=== PATIENT | female | born 2000 | race Caucasian/White ===

== ENCOUNTER 2023-11-11 18:58 | Emergency (ER) | payer MEDICAID, SELFPAY ==
[2023-11-11 19:03] VITALS: BP 123/83; PULSE 72; RESP 18; TEMP 36.7; O2SAT 99; BMI 27.4
[2023-11-11] MEDS: tetanus-dipt-pertussis 0.5 mL SDV IM (19:41)
--- NOTE | 2023-11-11 19:45 | ED_ITS ---
HPI - Wound/Laceration General: Chief Complaint: Wound/Laceration Stated Complaint: Left Eye Injury Time Seen by Provider: 11/11/23 19:19 Source: patient Mode of arrival: ambulatory Limitations: no limitations History of Present Illness: Patient is a 23-year-old female present to the emergency department for a laceration to her left eyebrow. States she was hit in the head by a dirty water hose, and her tetanus is not up-to-date. Bleeding controlled on arrival with direct pressure. States that they cleaned it with water. Did not lose consciousness and is only reporting some skin tenderness associated with the laceration. Onset (ago): hour(s) Location: face Place: outdoors Patient tetanus UTD: No Context: accidental Associated symptoms: Reports no associated symptoms; Denies chills, fever(s), nausea or vomiting Treatments prior to arrival: bandage Related Data Previous Rx's Medication Instructions Recorded cephalexin 500 mg capsule 500 mg PO BID 7 days #14 caps 09/01/20 mupirocin 2 % topical ointment 1 applic topical BID #22 grams 09/01/20 Allergies Allergy/AdvReac Type Severity Reaction Status Date / Time doxycycline Allergy Mild itching Verified 11/11/23 19:07 morphine Allergy ALGY-Rash Verified 11/11/23 19:07 Review of Systems 2 General: Reports: 10 or more systems reviewed and unremarkable except in HPI and below Const: Denies: fever(s) or chills Card: Denies: chest pain Resp: Denies: dyspnea GI: Denies: abdominal pain, nausea, vomiting or diarrhea Musc: Denies: extremity pain or joint pain Skin/Breast: Reports: skin tenderness and new lesions; Denies: rash Neuro: Denies: headache(s) PFSH ED PFSH: Medical History No active medical problems Social History Smoking and tobacco/nicotine status: never used tobacco/nicotine Female Reproductive History: Date of last menstrual period: 10/23/23 Physical Exam Const: COMMON NORMALS: no acute distress, average body habitus, patient oriented x3, no limitations, healthy appearing, alert and well nourished Neck/C-Spine: COMMON NORMALS: full ROM, no lymphadenopathy, supple and no meningeal signs Resp: COMMON NORMALS: normal respiratory effort, No use of accessory muscles and clear to auscultation bilaterally AUSCULTATION: clear to auscultation bilaterally Cardio: COMMON NORMALS: regular rate and regular rhythm RATE: regular rate RHYTHM: regular rhythm Extremity: COMMON NORMALS: full ROM and capillary refill normal Neuro: COMMON NORMALS: patient oriented x3 SENSORIUM/ORIENTATION: Yes alert MENINGEAL SIGNS: Yes no meningeal signs Skin: COMMON NORMALS: turgor normal NARRATIVE SKIN EXAM: Very small, very superficial 1 cm laceration to left eyebrow with no active bleeding GENERAL SKIN EXAM: turgor normal Course Vital Signs: Vital signs: Vital Signs Temperature 98.1 F 11/11/23 19:03 Pulse Rate 72 11/11/23 19:03 Respiratory Rate 18 11/11/23 19:03 Blood Pressure 123/83 11/11/23 19:03 Pulse Oximetry 99 11/11/23 19:03 Oxygen Delivery Me thod Room Air 11/11/23 19:03 MDM - Wound/Laceration Medical Decision Making Patient had a laceration caused by hit in the face with a dirty water hose, her tetanus was updated today. Laceration was much too small to repair with suture and shared decision making elected to go with Steri-Strip closure. Wound did appear very clean with no active bleeding on arrival, we did use some chlorhexidine here. She is discharged home with proper wound care instructions and will return with any new or worsening. No radiology studies performed this visit Discharge Plan Discharge Patient Disposition: Home Clinical Impression: Laceration Condition: Stable Prescriptions: No Action cephalexin 500 mg capsule 500 mg PO BID 7 Days Qty: 14 1RF mupirocin 2 % ointment 1 applic topical BID Qty: 22 3RF Discharge Orders: Discharge ED (Routine); Ordered 11/11/23 Ordered By: Arnoldo Patel Referrals: Jessica Zaragoza DO [Primary Care Provider] - Discharge Diet: Usual diet Discharge Activity: Increase activity as tolerated Patient Instructions: Facial Laceration (ED) Activity Restrictions/Additional Instructions: Steri-Strips. Keep wound clean and dry. Tylenol and ibuprofen for relief, may also apply ice. Follow-up with your primary care provider and return with any new or worsening of symptoms. Your tetanus was updated today 11/11/2023. Coding Level of Care Code ED Echo Technologist for Brian Boyd
[2023-11-11 19:46] VITALS: BP 119/81; PULSE 69; RESP 16; O2SAT 100
== END 2023-11-11 19:46 | disposition home or self-care (01) ==
PROVIDERS: Emergency Provider Physician Assistant; PCP Family Medicine
DX: S01.112A Laceration without foreign body of left eyelid and periocular area, initial encounter (principal); W22.8XXA Striking against or struck by other objects, initial encounter; Z23 Encounter for immunization
CPT/HCPCS: 90715; 99283